=== PATIENT | female | born 1975 | race Caucasian/White ===

== ENCOUNTER 2018-07-01 18:04 | Outpatient (REF) | payer MEDICAID, SELFPAY ==
[2018-07-01 21:00] LABS: Anion Gap 10.4 mmol/L (3-11); BUN 13 mg/dL (7-18); CO2 27.6 mmol/L (21.0-32.0); CREATININE 0.81 mg/dL (0.55-1.02); Calcium 9.2 mg/dL (8.5-10.1); Chloride 102 mmol/L (98-107); Glucose 76 mg/dL (70-100); NT-proBNP 416 pg/mL; Potassium 4.7 mmol/L (3.5-5.1); Sodium 140 mmol/L (136-145); TSH (W/Ref FT4) 0.07 uIU/mL (0.358-3.74)
[2018-07-01 21:32] LABS: FREE T4 1.05 ng/dL (0.76-1.46)
[2018-07-02 21:02] LABS: T3,Free 3.5 pg/ml (2.8-5.3)
== END 2018-07-01 18:05 ==
LOC: NCHCN 18:04
PROVIDERS: Internal Medicine; PCP Nurse Practitioner Family; Visit Provider Nurse Practitioner Family
DX: R53.83 Other fatigue (principal); I50.811 Acute right heart failure
CPT/HCPCS: 80048; 83880; 84439; 84443; 84481

== ENCOUNTER 2018-07-16 00:56 | Outpatient (CLI) | payer MEDICAID, SELFPAY ==
--- NOTE | 2018-07-16 10:40 | MERGE_ITS ---
*[facility]* *[facility]* [address] [place] [address] Date of study: 07/16/2018 Transthoracic Echocardiography M-mode, complete 2D, complete spectral Doppler, and color Doppler *STUDY CONCLUSIONS* Summary: 1. Left ventricle: The cavity size was normal. Wall thickness was normal. Systolic function was hyperdynamic. The estimated ejection fraction was 65-70%. There was no dynamic obstruction. Wall motion was normal; there were no regional wall motion abnormalities. 2. Right ventricle: The cavity size was normal. Wall thickness was normal. Systolic function was normal. 3. Right atrium: The atrium was mildly dilated. 4. Pulmonary arteries: Pulmonary systolic pressure was within the normal range, in the range of 25mm Hg to 30mm Hg. 5. Pericardium, extracardiac: A trivial pericardial effusion was identified posterior to the heart. *PATIENT PRESENTATION* Height: 160cm ((63in) ) S/D Pressure: 104 / 63 Weight: 104.3kg ((229.5lb) ) BSA: 2.21m^2 Test start time: 10:53 AM. Test stop time: 11:40 AM. PERFORMING Unknown REFERRING Francine Moscoso Aprn PERFORMING [facility] MICROSTRATEGY BI DEVELOPER RT Talita Mcclellan)(GAMALIEL)PAZ *PROCEDURE DATA* Procedure information: This study was interpreted by [facility]. Pertinent images and digital data are archived for permanent storage and are available for subsequent review. No prior study was available for comparison. Study status: Routine. Transthoracic echocardiography. M-mode, complete 2D, complete spectral Doppler, and color Doppler. A Transthoracic Echocardiogram was performed. Scanning was performed from the parasternal, apical, subcostal, and suprasternal notch acoustic windows. Images were obtained using an [id number]. cardiac ultrasound machine. Image quality was adequate. Study completion: The patient tolerated the procedure well. There were no complications. History: PMH: Acute right heart failure. Chest pain. *CARDIAC ANATOMY* Left ventricle: The cavity size was normal. Wall thickness was normal. Systolic function was hyperdynamic. The estimated ejection fraction was 65-70%. There was no dynamic obstruction. Wall motion was normal; there were no regional wall motion abnormalities. Diastolic parameters were normal. Aortic valve: Trileaflet; normal thickness leaflets. Mobility was not restricted. Doppler: Transvalvular velocity was within the normal range. There was no stenosis. There was no significant regurgitation. VTI ratio of LVOT to aortic valve: 0.78. Valve area (VTI): 2.6cm^2. Indexed valve area (VTI): 1.2cm^2/m^2. Peak velocity ratio of LVOT to aortic valve: 0.76. Valve area (Vmax): 2.5cm^2. Indexed valve area (Vmax): 1.1cm^2/m^2. Mean velocity ratio of LVOT to aortic valve: 0.82. Indexed valve area (Vmean): 1.2cm^2/m^2. Mean gradient (S): 2.3mm Hg. Peak gradient (S): 4.2mm Hg. Aorta: Aortic root: The aortic root was normal in size. Ascending aorta: The ascending aorta was normal in size. Mitral valve: Structurally normal valve. Mobility was not restricted. Doppler: Transvalvular velocity was within the normal range. There was no evidence for stenosis. There was trivial regurgitation. Valve area by pressure half-time: 5.6cm^2. Indexed valve area by pressure half-time: 2.5cm^2/m^2. Peak gradient (D): 2mm Hg. Left atrium: The atrium was normal in size. Right ventricle: The cavity size was normal. Wall thickness was normal. Systolic function was normal. Pulmonic valve: Structurally normal valve. Doppler: Transvalvular velocity was within the normal range. There was no evidence for stenosis. There was no significant regurgitation. Peak gradient (S): 2.9mm Hg. Tricuspid valve: Structurally normal valve. Doppler: Transvalvular velocity was within the normal range. There was no evidence for stenosis. There was no significant regurgitation. Pulmonary artery: Pulmonary systolic pressure was within the normal range, in the range of 25mm Hg to 30mm Hg. Right atrium: The atrium was mildly dilated. Pericardium: A trivial pericardial effusion was identified posterior to the heart. Systemic veins: Inferior vena cava: Well visualized. The vessel was patent and normal in size. The respirophasic diameter changes were in the normal range (greater than or equal to 50%). Baseline ECG: Bradycardia. Measurements Left ventricle Value Reference LV ID, ED, PLAX 4.4 cm 3.5 - 6.0 LV ID, ES, PLAX 3.2 cm 2.1 - 4.0 LV PW thickness, ED, PLAX 1.0 cm LV end-diastolic volume, 1-p A2C 63 ml LV ejection fraction, 1-p A2C 71 % LV end-diastolic volume, 1-p A4C 60 ml LV ejection fraction, 1-p A4C 72 % LV e', lateral 0.126 m/sec LV E/e', lateral 6 LV e', medial 0.088 m/sec LV E/e', medial 8 LV e', average 0.107 m/sec LV E/e', average 7 Ventricular septum Value Reference IVS thickness, ED, PLAX 0.9 cm LVOT Value Reference LVOT ID, A-P 2.0 cm LVOT area 3.3 cm^2 LVOT peak velocity, S 0.77 m/sec LVOT mean velocity, S 0.59 m/sec LVOT VTI, S 19.3 cm LVOT peak gradient, S 2.4 mm Hg LVOT mean gradient, S 1.5 mm Hg Stroke volume (SV), LVOT DP 63 ml Stroke index (SV/bsa), LVOT DP 29 ml/m^2 Aortic valve Value Reference Aortic valve peak velocity, S 1 m/sec Aortic valve mean velocity, S 0.72 m/sec Aortic valve VTI, S 24.7 cm Aortic mean gradient, S 2.3 mm Hg Aortic peak gradient, S 4.2 mm Hg VTI ratio, LVOT/AV 0.78 Aortic valve area, VTI 2.6 cm^2 Velocity ratio, peak, LVOT/AV 0.76 Aortic valve area, peak velocity 2.5 cm^2 Velocity ratio, mean, LVOT/AV 0.82 Aortic valve area/bsa, mean velocity 1.2 cm^2/m^2 Aorta Value Reference Aortic root ID, ED 3.0 cm Ascending aorta ID, A-P, S 2.9 cm RVOT Value Reference RVOT VTI, S 17.1 cm Left atrium Value Reference LA ID, A-P, ES 3.7 cm LA ID/bsa, A-P 1.7 cm/m^2 <=2.2 LA area, ES, A4C 20.8 cm^2 8.8 - 23.4 LA area, ES, A2C 20 cm^2 LA volume/bsa, ES, 1-p A4C 32 ml/m^2 LA volume, ES, 2-p 62 ml LA volume/bsa, ES, 2-p 28 ml/m^2 LA/aortic root ratio 1.24 Mitral valve Value Reference Mitral E-wave peak velocity 0.71 m/sec Mitral A-wave peak velocity 0.46 m/sec Mitral deceleration time (L) 135 ms 150 - 230 Mitral pressure half-time 39 ms Mitral peak gradient, D 2 mm Hg Mitral E/A ratio, peak 1.54 Mitral valve area, PHT, DP 5.6 cm^2 Pulmonary veins Value Reference Pulmonary vein peak velocity, S 0.47 m/sec Pulmonary vein peak velocity, D 0.43 m/sec Pulmonary vein velocity ratio, peak, 1.08 S/D Tricuspid valve Value Reference Tricuspid regurg peak velocity 2.5 m/sec Tricuspid peak RV-RA gradient 24.7 mm Hg Right atrium Value Reference RA area, ES, A4C (H) 22.2 cm^2 8.3 - 19.5 Pulmonic valve Value Reference Pulmonic peak gradient, S 2.9 mm Hg Legend: (L) and (H) scott values outside specified reference range. I have personally reviewed the images and have reviewed and edited the reported findings. Electronically signed by Mohinder Felix 07/16/2018 14:44
== END 2018-07-16 00:57 ==
PROVIDERS: PCP Nurse Practitioner Family; Visit Provider Internal Medicine
DX: R07.9 Chest pain, unspecified (principal); I50.811 Acute right heart failure; I31.3 Pericardial effusion (noninflammatory)
CPT/HCPCS: 93306

== ENCOUNTER 2018-07-24 15:21 | Outpatient (REF) | payer MEDICAID, SELFPAY ==
[2018-07-24 21:23] LABS: Anion Gap 6.3 mmol/L (3-11); BUN 14 mg/dL (7-18); CO2 28.7 mmol/L (21.0-32.0); CREATININE 0.85 mg/dL (0.55-1.02); Chloride 104 mmol/L (98-107); Glucose 83 mg/dL (70-100); NT-proBNP 849 pg/mL; Potassium 4.3 mmol/L (3.5-5.1); Sodium 139 mmol/L (136-145)
== END 2018-07-24 15:22 ==
LOC: NCHCN 15:21
PROVIDERS: PCP Nurse Practitioner Family; Visit Provider Nurse Practitioner Family
DX: I50.811 Acute right heart failure (principal); R53.83 Other fatigue; R07.9 Chest pain, unspecified; F39 Unspecified mood [affective] disorder; J45.30 Mild persistent asthma, uncomplicated; E03.9 Hypothyroidism, unspecified; I31.3 Pericardial effusion (noninflammatory)
CPT/HCPCS: 80048; 83880

== ENCOUNTER 2018-07-29 03:21 | Outpatient (CLI) | payer MEDICAID, SELFPAY | END 2018-07-29 03:41 | PROVIDERS: PCP Nurse Practitioner Family; Visit Provider Nurse Practitioner Family | DX: R53.83 Other fatigue (principal) | CPT/HCPCS: 93225 ==

== ENCOUNTER 2018-07-31 16:26 | Outpatient (CLI) | payer MEDICAID, SELFPAY ==
--- NOTE | 2018-08-01 10:07 | HOLT_ITS ---
Date of service: 08/01/18 Time of Service: 10:07 Holter Monitor Report Holter Monitor Note: 24 hour monitor. Indication-fatigue Baseline -sinus rhythm. Average heart rate 64 bpm. Minimum heart rate 40 bpm. Maximum rate of 129 bpm. Rare isolated ventricular ectopy. No nonsustained VT. Rare atrial ectopy. Rare short bursts of SVT. Longest burst of SVT 7 beats - asymptomatic. No atrial fibrillation. No significant pauses or bradycardia arrhythmias. Patient diary entries of chest pain, palpitations, tingling all correspond to sinus rhythm. Overall sinus rhythm with rare ectopy.
== END 2018-07-31 16:46 ==
PROVIDERS: PCP Nurse Practitioner Family; Visit Provider Nurse Practitioner Family
DX: R53.83 Other fatigue (principal); I47.1 Supraventricular tachycardia
CPT/HCPCS: 93226

== ENCOUNTER 2018-08-14 15:35 | Outpatient (REF) | payer MEDICAID, SELFPAY ==
[2018-08-14 21:32] LABS: TSH 2.38 uIU/mL (0.358-3.74)
== END 2018-08-14 15:55 ==
LOC: NCHCN 15:35
PROVIDERS: PCP Nurse Practitioner Family; Visit Provider Nurse Practitioner Family
DX: E03.9 Hypothyroidism, unspecified (principal)
CPT/HCPCS: 84443

== ENCOUNTER 2018-09-22 14:22 | Outpatient (REF) | payer MEDICAID, SELFPAY ==
[2018-09-22 20:58] LABS: Iron 70 ug/dL (50-175); Total Iron Binding Capacity 317 ug/dL (250-450); Transferrin Sat 22 % (15-50)
[2018-09-22 21:03] LABS: Abs Immature Grans 0.01 k/cumm (0.0-0.09); Absolute Basophil Count 0.03 k/cumm (0.0-0.2); Absolute Eosinophil Count 0.05 k/cumm (0.0-0.7); Absolute Lymphocyte Count 1.87 k/cumm (1.2-3.4); Absolute Monocyte Count 0.59 k/cumm (0.11-0.7); Absolute Neutrophil Count 5.52 k/cumm (1.2-6.7); Basophils % 0.4; Eosinophils % 0.6; HCT 46.9 % (36.0-46.0); Immature Grans % 0.1; Lymphocytes % 23.2; Mean Corp. HGB Concentration 34.1 g/dL (32.0-36.0); Mean Corpuscular Hemoglobin 31.4 pg (27.0-33.0); Mean Corpuscular Volume 92.1 fL (80-95); Mean Platelet Volume 13.4 fL (8.0-11.0); Monocytes % 7.3; Neutrophils % 68.4; Platelet Count 152 x1000/uL (130-400); RBC 5.09 m/cumm (4.00-5.20); RBC Distribution Width 14.8 % (11.7-14.6); White Blood Cell Count 8.07 k/cumm (4.4-10.8)
[2018-09-22 21:16] LABS: ALT 28 U/L (12-78); AST 16 U/L (15-37); Albumin 3.7 g/dL (3.4-5.0); Alkaline Phosphatase 82 U/L (46-116); Anion Gap 9.8 mmol/L (3-11); BUN 14 mg/dL (7-18); Bilirubin, Total 0.3 mg/dL (0.2-1.0); CO2 29.2 mmol/L (21.0-32.0); CREATININE 0.85 mg/dL (0.55-1.02); Chloride 103 mmol/L (98-107); Ferritin 48 ng/mL (8-388); Glucose 89 mg/dL (70-100); Magnesium 1.7 mg/dL (1.8-2.4); Potassium 4.2 mmol/L (3.5-5.1); Sodium 142 mmol/L (136-145); Total Protein 6.8 g/dL (6.4-8.2)
[2018-09-22 22:09] LABS: NT-proBNP 594 pg/mL
[2018-09-24 17:09] LABS: Creatine Kinase 129 U/L (26 - 192)
[2018-09-25 13:08] LABS: BB Fraction 0 % (0); MB Fraction 0 % (0); MM Fraction 100 % (100)
[2018-12-01 09:45] LABS: BB Fraction 0 % (0); MB Fraction 0 % (0); MM Fraction 100 % (100)
== END 2018-09-22 14:42 ==
LOC: NCHCN 14:22
PROVIDERS: PCP Nurse Practitioner Family; Visit Provider Nurse Practitioner Family
DX: R53.83 Other fatigue (principal); R06.00 Dyspnea, unspecified; R42 Dizziness and giddiness; R07.9 Chest pain, unspecified; R00.2 Palpitations; I10 Essential (primary) hypertension
CPT/HCPCS: 80053; 82550; 82552; 82728; 83540; 83550; 83735; 83880; 85025

== ENCOUNTER 2018-10-01 14:34 | Emergency (ER) | payer MEDICAID, SELFPAY ==
[2018-10-01 14:44] VITALS: BP 117/76; PULSE 62; RESP 16; TEMP 36.5; O2SAT 97
[2018-10-01 14:55] VITALS: RESP 18
--- NOTE | 2018-10-01 15:04 | DI.RAD_ITS ---
SYMPTOM/DIAGNOSIS: CHEST PAIN, SOB PA AND LATERAL CHEST: The heart is normal in size. The lungs are clear. The mediastinal structures and pleura appear intact. CONCLUSION: Normal chest. No evidence of acute cardiopulmonary disease.
--- NOTE | 2018-10-01 15:12 | W.ED.GENAD ---
Discharge Plan Disposition Patient Disposition: HOME Condition: Good Discharge Details Chief Complaint: SOB Clinical Impression: Peripheral vertigo, SOB (shortness of breath) Reason For Visit: sob and dizzy spells 1 week Primary Care Provider: Francine Moscoso ED Provider: David Pennington Home Meds and New Rx's Prescriptions: New meclizine 25 mg tablet 25 mg PO TID Qty: 14 RF: 0 No Action clonidine HCl 0.1 MG tablet 0.1 mg PO BID PRN RF: 0 gabapentin 600 MG tablet 600 mg PO BID RF: 0 citalopram 40 MG tablet 40 mg PO DAILY RF: 0 omeprazole [Prilosec] 40 MG capsule,delayed release(DR/EC) 40 mg PO DAILY RF: 0 trazodone 100 MG tablet 100 mg PO HS RF: 0 fluticasone [Flovent HFA] 12 GM HFA aerosol inhaler 2 puff Inhalation BID RF: 0 estradiol 0.5 MG tablet 0.5 mg PO DAILY RF: 0 magnesium oxide 500 MG tablet 1,000 mg PO DAILY RF: 0 cholecalciferol (vitamin D3) 1,000 UNIT tablet 2,000 unit PO DAILY RF: 0 atorvastatin 20 MG tablet 20 mg PO DAILY Qty: 90 RF: 4 aspirin 81 MG tablet,delayed release (DR/EC) 81 mg PO DAILY Qty: 90 RF: 4 sennosides [senna] 8.6 MG tablet 1 tab-cap PO BID RF: 0 potassium chloride 10 MEQ capsule, extended release 20 meq PO DAILY Qty: 60 RF: 0 furosemide 20 MG tablet 20 mg PO BID@0830,1600 Qty: 60 RF: 0 omega 5-hdg-hdg-fish oil [Fish Oil] 1,000 mg (120 mg-180 mg) Capsule 1,000 mg PO DAILY RF: 0 levothyroxine 150 mcg Capsule 150 mcg PO DAILY RF: 0 Discharge Instructions Instructions: Dyspnea (ED), Dizziness (ED) Additional Instructions: Please continue taking the meclizine as directed. Please take your home medications as directed. Please follow-up with your associate entertainment editor Dr. Kady Nelson as soon as possible for reassessment. If you notice any worsening of your symptoms, or any new symptoms such as vomiting, diarrhea, fever, chills, shortness of breath, chest pain, numbness, weakness, or fainting , please return immediately to the emergency department for reevaluation. Please follow up with your primary care provider as soon as possible for reassessment and reevaluation. As always, it was a pleasure participating in your medical care today. Referrals: Francine Moscoso [Primary Care Provider] - Discharge Data Discharge Date/Time-TO BE ENTERED AT DEPARTURE: 10/01/18 18:17 Medical Decision Making This is a very pleasant 43-year-old female who presents for evaluation of dizziness, lightheadedness, mild shortness of breath. She states that it is been going on for the last few days. She denies any exertional chest pain, or chest discomfort. She denies any worsening of her symptoms with exertion. She denies any severe pleuritic chest pain. Physical exam demonstrates notable horizontal nystagmus, and a positive head impulse test. Bedside portable ultrasound was performed, and demonstrates evidence of a very minimal trace pericardial effusion, no evidence of compression on the patient's ventricles or atria, no evidence of compressive pericarditis. The patient is on estrogen, but has no other pulmonary embolism risk factors. We did get a d-dimer and this was normal. Laboratory workup is normal, troponin is negative, EKG benign, chest x-ray negative for any acute process, electrolytes normal. Patient's vital signs have remained completely stable here with no evidence of tachycardia, hypoxemia, or tachypnea. No hemodynamic instability. Physical exam did show evidence of signs and symptoms suggestive of peripheral vertigo with notable horizontal nystagmus worse with a head impulse test, and improved with meclizine that was given here. I feel that the patient's symptoms of mild shortness of breath are more likely related to her chronic tobacco history, rather than an acute cardiac etiology. With a normal troponin, normal EKG, and a heart score in the 0-3 range, in conjunction with her dizziness and lightheadedness most likely secondary to peripheral vertigo, I feel that she would be appropriate for discharge with close cardiology follow-up. I discussed the case with Dr. Washington. We discussed the patient's clinical case, scenario, and EKG findings and workup. I also discussed the limited bedside echo with the minimal trace pericardial effusion. He has no additional recommendations and does agree with close follow-up on an outpatient basis. Currently at this time of exam the patient's symptomatology does appear to be clinically inconsistent with ACS. Patient will be discharged home with meclizine, instructions for hydration, smoking cessation, and close follow-up with her associate entertainment editor. I have extensively reviewed the treatment plan and discharge instructions with the patient. I have addressed all patient concerns at this time. The patient was made aware of what symptoms to monitor for that would warrant a return to the emergency department. Discussed the plan with the patient, they demonstrate verbal understanding and agreement with our assessment and plan at this time. HPI General Date/Time Provider Initiated Documentation: 10/01/18 15:03. HPI Narrative: This is a 43-year-old female with a past medical history of mild congestive heart failure, high cholesterol, thyroidectomy, chronic trace pericardial effusion, regular Suboxone use, chronic self-catheterization secondary to history of incontinence, as well as being an avid smoker. She presents today for evaluation of dizziness, and occasional shortness of breath. The patient regularly sees Dr. Washington for cardiology. Patient states that over the last few days she has had occasional dizziness, worse with turning her head, as well as some very mild associated shortness of breath, mild cough. Denies any chest pain, but does admit to occasional pressure in her chest when she tries to breathe. She denies any significant neck or arm pain. She denies any history of cardiac disease, she denies any exertional chest pain. She was at her Suboxone prescriber's office today she was discussing her symptoms. The provider then recommended she come to the ER for further evaluation. Currently the patient denies any significant dizziness, lightheadedness, or chest pain or chest pressure. She denies any previous ischemia cardiac disease, stenting, or other abnormalities. She denies any ringing in her ears, vision changes, headache, numbness, tingling, or weakness. She has no other associated complaints at this time. She denies any current IV or illicit drug use. Related Data Home Medications Medication Instructions Recorded Confirmed citalopram 40 mg PO DAILY tab-cap 10/24/15 10/01/18 clonidine HCl 0.1 mg PO BID PRN tab-cap 10/24/15 10/01/18 estradiol 0.5 mg PO DAILY tab-cap 10/24/15 10/01/18 fluticasone [Flovent HFA] 2 puff INHALATION BID inhaler 10/24/15 10/01/18 gabapentin 600 mg PO BID tab-cap 10/24/15 10/01/18 omeprazole [Prilosec] 40 mg PO DAILY tab-cap 10/24/15 10/01/18 trazodone 100 mg PO HS tab-cap 10/24/15 10/01/18 aspirin 81 mg PO DAILY #90 tab-cap 10/31/15 10/01/18 atorvastatin 20 mg PO DAILY #90 tab-cap 10/31/15 10/01/18 cholecalciferol (vitamin D3) 2,000 unit PO DAILY 10/31/15 10/01/18 magnesium oxide 1,000 mg PO DAILY 10/31/15 06/27/18 sennosides [senna] 1 tab-cap PO BID tab-cap 10/29/17 10/01/18 furosemide 20 mg PO BID@0830,1600 #60 tab 06/28/18 10/01/18 potassium chloride 20 meq PO DAILY #60 capcr 06/28/18 10/01/18 levothyroxine 150 mcg PO DAILY 10/01/18 10/01/18 meclizine 25 mg PO TID #14 tab 10/01/18 omega 1-slo-ezx-fish oil [Fish Oil] 1,000 mg PO DAILY 10/01/18 10/01/18 Previous Rx's Medication Instructions Recorded furosemide 20 mg PO BID@0830,1600 #60 tab 06/28/18 potassium chloride 20 meq PO DAILY #60 capcr 06/28/18 meclizine 25 mg PO TID #14 tab 10/01/18 Allergies Allergy/AdvReac Type Severity Reaction Status Date / Time aspirin Allergy Mild STOMACH Unverified 06/27/18 14:10 DISCOMFORT sulfamethoxazole Allergy Unknown Unverified 06/27/18 14:10 [From ] trimethoprim [From ] Allergy Unknown Unverified 06/27/18 14:10 General Stated Complaint: SOB ROSETTA: 3 Review of Systems Review of Systems All systems reviewed & are unremarkable except as noted in HPI and below PFSH Social History Smoking/Tobacco Use Status: Current every day Surgical History Cholecystectomy Hysterectomy, Laproscopic Tonsillectomy and adenoidectomy Exam Narrative Exam Narrative: 1.Const: Well-nourished, Well-developed, appearing stated age 2.Eyes: PERRL, no conjunctival injection, and symmetrical lids. 3.ENT: Atraumatic external nose and ears. Moist MM. Neck: Symmetric, trachea midline, No thyromegaly. Patient does demonstrate horizontal nystagmus, notable worsening of her symptoms with a head impulse test. Dizziness is worsened, as well as the mild horizontal nystagmus. No vertical or rotatory nystagmus. 4.CVS: +S1/S2, No murmurs or gallops. Peripheral pulses 2+ and equal in all extremities. Brisk capillary refill in all extremities. 5.RESP: Unlabored respiratory effort. Clear to auscultation bilaterally. No wheezes rales or rhonchi 6.GI: Soft, Nontender/Nondistended, No hepatosplenomegaly. No guarding or rebound. 7.MSK: Normocephalic/Atraumatic, Extremities w/o deformity or ttp No cyanosis or clubbing, Normal movement of all extremities. No calf tenderness or swelling. 8.Skin: Warm, Dry. No rashes or lesions. 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 Sensation grossly intact, no focal neurologic deficits. Cerebellar function testing is normal. The patient demonstrates a normal hints exam with no findings concerning for a central event. No vertical nystagmus. The head impulse test is negative for any significant central abnormality. Normal test of skew. No suggestion of a central cerebellar event. All 6 cardinal planes of vision are fully intact. No evidence of rotatory or vertical nystagmus. The patient demonstrated a normal rdpvan-[id number]-bgurqp, good dexterity. There was no evidence of dysdiadochokinesia. Patient was able to ambulate without difficulty. There was no wide-based gait. Romberg, and opvl-ok-qvdg are both normal on testing. Sensation was intact bilaterally as well as muscle strength bilaterally for all extremities. Patient was able to verbalize butter cup with no slurring, or miss pronunciation. 10.Psych: (AAO) x3. Appropriate mood and affect Course Vital Signs Temperature 36.5 C 10/01/18 14:44 Pulse 62 10/01/18 14:44 Respiratory Rate 16 10/01/18 14:44 Blood Pressure 117/76 10/01/18 14:44 Pulse Oximetry 97 10/01/18 14:44 Temperature 36.5 C 10/01/18 14:44 Temperature Source Temporal Artery Scan 10/01/18 14:44 Pulse 62 10/01/18 14:44 Respiratory Rate 18 10/01/18 14:55 Respiratory Effort 10/01/18 14:55 Blood Pressure 117/76 10/01/18 14:44 Pulse Oximetry 97 10/01/18 14:44 Oxygen Delivery Method Room Air 10/01/18 14:44 Oxygen Flow Rate 0 10/01/18 14:44 Comment 10/01/18 14:44
[2018-10-01 15:22] LABS: Abs Immature Grans 0.01 k/cumm (0.0-0.09); Absolute Basophil Count 0.03 k/cumm (0.0-0.2); Absolute Eosinophil Count 0.11 k/cumm (0.0-0.7); Absolute Lymphocyte Count 3.22 k/cumm (1.2-3.4); Absolute Monocyte Count 0.52 k/cumm (0.11-0.7); Absolute Neutrophil Count 3.33 k/cumm (1.2-6.7); Basophils % 0.4; Eosinophils % 1.5; HCT 45.3 % (36.0-46.0); HGB 15.4 g/dL (12.0-15.5); Immature Grans % 0.1; Lymphocytes % 44.6; Mean Corpuscular Volume 91.1 fL (80-95); Mean Platelet Volume 12.4 fL (8.0-11.0); Monocytes % 7.2; Neutrophils % 46.2; Platelet Count 163 x1000/uL (130-400); RBC 4.97 m/cumm (4.00-5.20); RBC Distribution Width 14.9 % (11.7-14.6); White Blood Cell Count 7.22 k/cumm (4.4-10.8)
[2018-10-01] MEDS: Normal Saline 500 ML 1000 ML IV (15:25)
[2018-10-01] MEDS: Meclizine 25 MG TAB PO (15:25)
[2018-10-01 15:39] LABS: ALT 24 U/L (12-78); AST 16 U/L (15-37); Albumin 3.6 g/dL (3.4-5.0); Alkaline Phosphatase 85 U/L (46-116); Anion Gap 7.1 mmol/L (3-11); BUN 18 mg/dL (7-18); Bilirubin, Total 0.2 mg/dL (0.2-1.0); CO2 29.9 mmol/L (21.0-32.0); CREATININE 0.82 mg/dL (0.55-1.02); Calcium 8.9 mg/dL (8.5-10.1); Chloride 101 mmol/L (98-107); Glucose 112 mg/dL (70-100); Sodium 138 mmol/L (136-145); Total Protein 6.9 g/dL (6.4-8.2)
[2018-10-01 15:53] LABS: Troponin I < 0.02 ng/mL (0.00-0.06)
[2018-10-01 15:55] LABS: D-Dimer 441 ng/mlFEU (<500)
--- NOTE | 2018-10-01 16:40 | DI.VRAD_ITS ---
EXAM: XR Chest, 2 Views EXAM DATE/TIME: 10/01/2018 3:06 PM CLINICAL HISTORY: 43 years old, female; Pain; Chest pain; Type not specified TECHNIQUE: XR of the chest, 2 views. COMPARISON: CR CHEST 2 VIEWS PA,LAT 06/27/2018 2:55 PM FINDINGS: Lungs: Unremarkable. No consolidation. Pleural space: Unremarkable. No pleural effusion. No pneumothorax. Heart/Mediastinum: Cardiomediastinal contours and hilar shadows are unchanged. Bones/joints: Mild skeletal degenerative changes are seen. There are surgical clips in the upper abdomen. IMPRESSION: 1. No focal consolidation or pneumothorax. If symptoms remain concerning, cross-sectional imaging could be considered. Dictated and Authenticated by: Yen Garber MD. Ordering:RICH TOBAR MD
[2018-10-01 18:13] VITALS: BP 110/67; PULSE 59; RESP 16; TEMP 36.7; O2SAT 98
--- NOTE | 2018-10-01 21:36 | ED.GENADUL_ITS ---
Discharge Plan Disposition Patient Disposition: HOME Condition: Good Discharge Details Chief Complaint: SOB Clinical Impression: Peripheral vertigo, SOB (shortness of breath) Reason For Visit: sob and dizzy spells 1 week Primary Care Provider: Francine Moscoso ED Provider: David Pennington Home Meds and New Rx's Prescriptions: New meclizine 25 mg tablet 25 mg PO TID Qty: 14 RF: 0 No Action clonidine HCl 0.1 MG tablet 0.1 mg PO BID PRN RF: 0 gabapentin 600 MG tablet 600 mg PO BID RF: 0 citalopram 40 MG tablet 40 mg PO DAILY RF: 0 omeprazole [Prilosec] 40 MG capsule,delayed release(DR/EC) 40 mg PO DAILY RF: 0 trazodone 100 MG tablet 100 mg PO HS RF: 0 fluticasone [Flovent HFA] 12 GM HFA aerosol inhaler 2 puff Inhalation BID RF: 0 estradiol 0.5 MG tablet 0.5 mg PO DAILY RF: 0 magnesium oxide 500 MG tablet 1,000 mg PO DAILY RF: 0 cholecalciferol (vitamin D3) 1,000 UNIT tablet 2,000 unit PO DAILY RF: 0 atorvastatin 20 MG tablet 20 mg PO DAILY Qty: 90 RF: 4 aspirin 81 MG tablet,delayed release (DR/EC) 81 mg PO DAILY Qty: 90 RF: 4 sennosides [senna] 8.6 MG tablet 1 tab-cap PO BID RF: 0 potassium chloride 10 MEQ capsule, extended release 20 meq PO DAILY Qty: 60 RF: 0 furosemide 20 MG tablet 20 mg PO BID@0830,1600 Qty: 60 RF: 0 omega 6-rdx-hkx-fish oil [Fish Oil] 1,000 mg (120 mg-180 mg) Capsule 1,000 mg PO DAILY RF: 0 levothyroxine 150 mcg Capsule 150 mcg PO DAILY RF: 0 Discharge Instructions Instructions: Dyspnea (ED), Dizziness (ED) Additional Instructions: Please continue taking the meclizine as directed. Please take your home medications as directed. Please follow-up with your machine puller and laster Dr. Kady Nelson as soon as possible for reassessment. If you notice any worsening of your symptoms, or any new symptoms such as vomiting, diarrhea, fever, chills, shortness of breath, chest pain, numbness, weakness, or fainting , please return immediately to the emergency department for reevaluation. Please follow up with your primary care provider as soon as possible for reassessment and reevaluation. As always, it was a pleasure participating in your medical care today. Referrals: Francine Moscoso [Primary Care Provider] - Discharge Data Discharge Date/Time-TO BE ENTERED AT DEPARTURE: 10/01/18 18:17 Medical Decision Making This is a very pleasant 43-year-old female who presents for evaluation of dizziness, lightheadedness, mild shortness of breath. She states that it is been going on for the last few days. She denies any exertional chest pain, or chest discomfort. She denies any worsening of her symptoms with exertion. She denies any severe pleuritic chest pain. Physical exam demonstrates notable horizontal nystagmus, and a positive head impulse test. Bedside portable ultrasound was performed, and demonstrates evidence of a very minimal trace pericardial effusion, no evidence of compression on the patient's ventricles or atria, no evidence of compressive pericarditis. The patient is on estrogen, but has no other pulmonary embolism risk factors. We did get a d- dimer and this was normal. Laboratory workup is normal, troponin is negative, EKG benign, chest x-ray negative for any acute process, electrolytes normal. Patient's vital signs have remained completely stable here with no evidence of tachycardia, hypoxemia, or tachypnea. No hemodynamic instability. Physical exam did show evidence of signs and symptoms suggestive of peripheral vertigo with notable horizontal nystagmus worse with a head impulse test, and improved with meclizine that was given here. I feel that the patient's symptoms of mild shortness of breath are more likely related to her chronic tobacco history, rather than an acute cardiac etiology. With a normal troponin, normal EKG, and a heart score in the 0-3 range, in conjunction with her dizziness and lightheadedness most likely secondary to peripheral vertigo, I feel that she would be appropriate for discharge with close cardiology follow-up. I discussed the case with Dr. Washington. We discussed the patient's clinical case , scenario, and EKG findings and workup. I also discussed the limited bedside echo with the minimal trace pericardial effusion. He has no additional recommendations and does agree with close follow-up on an outpatient basis. Currently at this time of exam the patient's symptomatology does appear to be clinically inconsistent with ACS. Patient will be discharged home with meclizine, instructions for hydration, smoking cessation, and close follow-up with her machine puller and laster. I have extensively reviewed the treatment plan and discharge instructions with the patient. I have addressed all patient concerns at this time. The patient was made aware of what symptoms to monitor for that would warrant a return to the emergency department. Discussed the plan with the patient, they demonstrate verbal understanding and agreement with our assessment and plan at this time. HPI General Date/Time Provider Initiated Documentation: 10/01/18 15:03 . HPI Narrative: This is a 43-year-old female with a past medical history of mild congestive heart failure, high cholesterol, thyroidectomy, chronic trace pericardial effusion, regular Suboxone use, chronic self- catheterization secondary to history of incontinence, as well as being an avid smoker. She presents today for evaluation of dizziness, and occasional shortness of breath. The patient regularly sees Dr. Washington for cardiology. Patient states that over the last few days she has had occasional dizziness, worse with turning her head, as well as some very mild associated shortness of breath, mild cough. Denies any chest pain, but does admit to occasional pressure in her chest when she tries to breathe. She denies any significant neck or arm pain. She denies any history of cardiac disease, she denies any exertional chest pain. She was at her Suboxone prescriber's office today she was discussing her symptoms. The provider then recommended she come to the ER for further evaluation. Currently the patient denies any significant dizziness , lightheadedness, or chest pain or chest pressure. She denies any previous ischemia cardiac disease, stenting, or other abnormalities. She denies any ringing in her ears, vision changes, headache, numbness, tingling, or weakness. She has no other associated complaints at this time. She denies any current IV or illicit drug use. Related Data Home Medications Medication Instructions Recorded Confirmed citalopram 40 mg PO DAILY tab-cap 10/24/15 10/01/18 clonidine HCl 0.1 mg PO BID PRN tab-cap 10/24/15 10/01/18 estradiol 0.5 mg PO DAILY tab-cap 10/24/15 10/01/18 fluticasone [Flovent HFA] 2 puff INHALATION BID inhaler 10/24/15 10/01/18 gabapentin 600 mg PO BID tab-cap 10/24/15 10/01/18 omeprazole [Prilosec] 40 mg PO DAILY tab-cap 10/24/15 10/01/18 trazodone 100 mg PO HS tab-cap 10/24/15 10/01/18 aspirin 81 mg PO DAILY #90 tab-cap 10/31/15 10/01/18 atorvastatin 20 mg PO DAILY #90 tab-cap 10/31/15 10/01/18 cholecalciferol (vitamin D3) 2,000 unit PO DAILY 10/31/15 10/01/18 magnesium oxide 1,000 mg PO DAILY 10/31/15 06/27/18 sennosides [senna] 1 tab-cap PO BID tab-cap 10/29/17 10/01/18 furosemide 20 mg PO BID@0830,1600 #60 tab 06/28/18 10/01/18 potassium chloride 20 meq PO DAILY #60 capcr 06/28/18 10/01/18 levothyroxine 150 mcg PO DAILY 10/01/18 10/01/18 meclizine 25 mg PO TID #14 tab 10/01/18 omega 3-uay-otf-fish oil [Fish Oil] 1,000 mg PO DAILY 10/01/18 10/01/18 Previous Rx's Medication Instructions Recorded furosemide 20 mg PO BID@0830,1600 #60 tab 06/28/18 potassium chloride 20 meq PO DAILY #60 capcr 06/28/18 meclizine 25 mg PO TID #14 tab 10/01/18 Allergies Allergy/AdvReac Type Severity Reaction Status Date / Time aspirin Allergy Mild STOMACH Unverified 06/27/18 14:10 DISCOMFORT sulfamethoxazole Allergy Unknown Unverified 06/27/18 14:10 [From ] trimethoprim [From ] Allergy Unknown Unverified 06/27/18 14:10 General Stated Complaint: SOB ROSETTA: 3 Review of Systems Review of Systems All systems reviewed & are unremarkable except as noted in HPI and below PFSH Social History Smoking/Tobacco Use Status: Current every day Surgical History Cholecystectomy Hysterectomy, Laproscopic Tonsillectomy and adenoidectomy Exam Narrative Exam Narrative: 1.Const: Well-nourished, Well-developed, appearing stated age 2.Eyes: PERRL, no conjunctival injection, and symmetrical lids. 3.ENT: Atraumatic external nose and ears. Moist MM. Neck: Symmetric, trachea midline, No thyromegaly. Patient does demonstrate horizontal nystagmus, notable worsening of her symptoms with a head impulse test. Dizziness is worsened, as well as the mild horizontal nystagmus. No vertical or rotatory nystagmus. 4.CVS: +S1/S2, No murmurs or gallops. Peripheral pulses 2+ and equal in all extremities. Brisk capillary refill in all extremities. 5.RESP: Unlabored respiratory effort. Clear to auscultation bilaterally. No wheezes rales or rhonchi 6.GI: Soft, Nontender/Nondistended, No hepatosplenomegaly. No guarding or rebound. 7.MSK: Normocephalic/Atraumatic, Extremities w/o deformity or ttp No cyanosis or clubbing, Normal movement of all extremities. No calf tenderness or swelling. 8.Skin: Warm, Dry. No rashes or lesions. 9.Neuro: retail cashier II-XII grossly intact. Sensation grossly intact, no focal neurologic deficits. Cerebellar function testing is normal. The patient demonstrates a normal hints exam with no findings concerning for a central event. No vertical nystagmus. The head impulse test is negative for any significant central abnormality. Normal test of skew. No suggestion of a central cerebellar event. All 6 cardinal planes of vision are fully intact. No evidence of rotatory or vertical nystagmus. The patient demonstrated a normal wiaidn-qenk-ktophb, good dexterity. There was no evidence of dysdiadochokinesia. Patient was able to ambulate without difficulty. There was no wide-based gait. Romberg, and bqil-hx-tpef are both normal on testing. Sensation was intact bilaterally as well as muscle strength bilaterally for all extremities. Patient was able to verbalize butter cup with no slurring, or miss pronunciation. 10.Psych: (AAO) x3. Appropriate mood and affect Course Vital Signs Temperature 36.5 C 10/01/18 14:44 Pulse 62 10/01/18 14:44 Respiratory Rate 16 10/01/18 14:44 Blood Pressure 117/76 10/01/18 14:44 Pulse Oximetry 97 10/01/18 14:44 Temperature 36.5 C 10/01/18 14:44 Temperature Source Temporal Artery Scan 10/01/18 14:44 Pulse 62 10/01/18 14:44 Respiratory Rate 18 10/01/18 14:55 Respiratory Effort 10/01/18 14:55 Blood Pressure 117/76 10/01/18 14:44 Pulse Oximetry 97 10/01/18 14:44 Oxygen Delivery Method Room Air 10/01/18 14:44 Oxygen Flow Rate 0 10/01/18 14:44 Comment 10/01/18 14:44
== END 2018-10-01 18:17 | disposition home or self-care (01) ==
PROVIDERS: Emergency Provider Student in an Organized Health Care Education/Training Program; PCP Nurse Practitioner Family
DX: H81.399 Other peripheral vertigo, unspecified ear (principal); R06.02 Shortness of breath; R93.1 Abnormal findings on diagnostic imaging of heart and coronary circulation; R42 Dizziness and giddiness
CPT/HCPCS: 36415; 80053; 93005; 96360; 99285; 71046; 84484; 85025; 85379; 93010; 99284

== ENCOUNTER 2018-12-09 14:30 | Outpatient (REF) | payer MEDICAID, SELFPAY ==
[2018-12-09 22:01] LABS: Magnesium 1.7 mg/dL (1.8-2.4)
== END 2018-12-09 14:50 ==
LOC: NCHCN 14:30
PROVIDERS: PCP Nurse Practitioner Family; Visit Provider Nurse Practitioner Family
DX: E83.42 Hypomagnesemia (principal); M25.519 Pain in unspecified shoulder; I10 Essential (primary) hypertension; I31.3 Pericardial effusion (noninflammatory); F39 Unspecified mood [affective] disorder; R53.83 Other fatigue; I20.9 Angina pectoris, unspecified
CPT/HCPCS: 83735

== ENCOUNTER 2019-01-08 14:45 | Outpatient (REF) | payer MEDICAID, SELFPAY ==
--- NOTE | 2019-01-08 14:10 | SKI_PTH ---
PATIENT: BRIAN HILLMAN LOC: [facility] U#:[id number] AGE/SX: 43/F ROOM: RE01/08/[address]: Francine Moscoso : 1975 BED: DIS: 01/08/2019 SPEC #: [id number] RECD: 01/09/19 12:45 STATUS: ALISE OLPEZ #: [id number] SHARIF: 01/08/19 14:[address]: Francine Moscoso DEPT: Surgical Specimen RECD BY: Richa Bloom Tissues: 1 - SKIN BIOPSY(SHAVE/PUNCH) Procedures: SKIN LEVEL 4 Comments: [id number]
== END 2019-01-08 15:05 ==
LOC: NCHCN 14:45
PROVIDERS: PCP Nurse Practitioner Family; Visit Provider Nurse Practitioner Family
DX: D22.5 Melanocytic nevi of trunk (principal)
CPT/HCPCS: 88305

== ENCOUNTER 2019-03-13 00:16 | Outpatient (CLI) | payer MEDICAID, SELFPAY ==
--- NOTE | 2019-03-13 06:32 | MERGEMPI_ITS ---
*[facility]* *[facility]* [address] [place] [address] Myocardial Perfusion Imaging - SPECT Guevara protocol Date of study: 03/13/2019 *PATIENT PRESENTATION* Height: 160cm (63in) Blood Pressure: Weight: 109.1kg (240lb) BSA: 2.26m^2 Referring physician: Daniel Ghosh Ordering physician: Daniel Ghosh Impressions: Abnormal study after pharmacologic stress. Summary: 1. Myocardial perfusion imaging: There is a moderate sized, moderately intense, predominantly reversible defect involving the anterolateral wall(s). This suggests moderate ischemia in the distribution of the left anterior descending coronary artery. 2. The calculated left ventricular ejection fraction after stress: 67%. LV global systolic function is normal. Indication: R06.02, R07.9. History: REASON FOR TESTING: OVER THE PAST FEW MONTHS PATIENT REPORTS HAVING INTERMITTENT LEFT SIDED CHEST PAIN CRAMP ( 2/10) THAT LASTS FROM FIVE TO FIFTEEN SECONDS AND IS NOT RELATED WITH REST OR ACTIVITY. SHE STATES THE CRAMP IS RELEIVED WITH APPLYING PRESSURE OVER THE CRAMP SITE WITH HER HAND. SHE ALSO REPORTS HAVING OCCASIONAL PALPITATIONS FOR THE LAST 9 HEARS. UPON ARRIVAL TO TESTING TODAY PATIENT HAD A BRIEF LEFT SIDED HEART CRAMP THAT WAS RELEIVED WITH PUTTING PRESSURE OF THE SITE. NO OTHER REPORTED SYMPTOMS AT THIS TIME. SIGNIFICANT PAST MEDICAL HISTORY: THYROIDECTOMY, MILD CONGESTIVE HEART FAILURE, CHRONIC TRACE PERICARDIAL EFFUSION. SMOKING STATUS: CURRENT SMOKER. SMOKED FOR 30 YEARS 2 PPD. SHE IS TRYING TO QUIT SO OVER THE LAST 2 YEARS SHE MAY SMOKE UP TO 3 CIGARETTES PER DAY. EXERCISE ROUTINE: ACTIVE WITH DAILY ADL'S. PMH: Asthma. Risk factors: Family history of coronary artery disease. Current tobacco use. Obesity. Dyslipidemia. ALLERGIES: SULFAMETHOXAZOLE, TRIMETHOPRIM. MEDICATIONS: FLOVENT HFA 2 PUFFS BID, CITALOPRAM 40 MG DAILY, ESTRADOIL 0.5 MG DAILY, GABAPENTIN 600 MG QID, PRILOSEC 40 MG DAILY, TRAZODONE 100 MG HS, ASPIRIN 81 MG DAILY, ATORVASTATIN 20 MG DAILY, VITAMIN D 2000 UNITS DAILY, MAGNESIUM OXIDE 1000 MG DAILY, SENNA 1 TAB BID, POTASSIUM CHLORIDE 20 ALIE DAILY, MECLIZINE 25 MG DAILY, LEVOTHYROXINE 150 MCG DAILY, FISH OIL 1000 MG DAILY, BUSPIRONE 15 MG BID, SUBOXONE 20 MG DAILY. Imaging Technique: Protocol: Guevara protocol. Acquisition: Gated SPECT; 1 day - rest/stress. The patient was imaged in the supine position. Attenuation correction used. Isotope administration: - Rest. Tc[99m]-sestamibi. Dose: 10.4mCi. Injection time: 08:45 AM. Injection to stress time: 00:45. - Stress. Tc[99m]-sestamibi. Dose: 32.3mCi. Injection time: 10:12 AM. 1-2 min before end of exercise Baseline ECG: SINUS BRADYCARDIA. HR 56 BPM. Stress protocol: +--------+--+ + + !Stage !HR!BP (mmHg) !Comments ! +--------+--+ + + !Baseline!56!108/76 (87)! ! +--------+--+ + + !1 min !81!118/78 (91)!Inject Regadenoson.! +--------+--+ + + !3 min !71!118/80 (93)! ! +--------+--+ + + !6 min !65!120/68 (85)! ! +--------+--+ + + !9 min !62!112/70 (84)! ! +--------+--+ + + * Stress results: UNABLE TO DO GUEVARA PROTOCOL DUE TO CHRONIC HIP ISSUES. PATIENT HAS POOR TOLERANCE TO WALKING AT A FASTER RATE SHE FEELS LIKE HER HIP WILL LET GO CAUSING HER TO FALL. LEXISCAN STRESS TEST ENDED IN 9 MINUTES 25 SECONDS. NORMAL HEART RATE AND BLOOD PRESSURE RESPONSE TO LEXISCAN INJECTION. NO ECTOPY. PATIENT REPORTED A TIGHTNESS IN HER RIGHT SHOULDER AT APPROXIMATELY 1 MINUTES POST LEXISCAN INJECTION THAT HAD SUBSIDED BY APPROXIMATELY 5 MINUTES POST LEXISCAN INJECTION. NO SIGNIFICANT ST SEGMENT CHANGES. The rate-pressure product for the peak heart rate and blood pressure was 9558mm Hg/min. Myocardial perfusion: Imaging information: gated. Left ventricular size is normal. There is a moderate sized, moderately intense, predominantly reversible defect involving the anterolateral wall(s). This suggests moderate ischemia in the distribution of the left anterior descending coronary artery. Ventricular Function (Wall Motion): The calculated left ventricular ejection fraction after stress: 67%. LV global systolic function is normal. Study data: Daniel Ghosh MD supervised and was readily available during the procedure. This study was interpreted by [facility]. Study status: Routine. Consent: The risks, benefits, and alternatives to the procedure were explained to the patient and informed consent was obtained. Procedure: Initial setup. A baseline ECG was recorded. Surface ECG leads and manual cuff blood pressure measurements were monitored. Heart sounds: Normal. Lung sounds: Normal. Treadmill exercise testing was performed using the Guevara protocol. Study completion: All catheters inserted during the procedure were removed. The patient tolerated the procedure well and was discharged from the lab. Discharge: The patient left the laboratory in stable condition. Birthdate: Patient birthdate: 1975. Sex: Gender: female. Study date: Study date: 03/13/2019. Study time: 00:01 AM. Signature Documentation: - The imaging portion of this study was interpreted by Nuclear Dump Attendant Daniel Ghosh MD. - The imaging portion of this study was interpreted by Nuclear Radiologist Vishnu Delacruz MD. - The Stress ECG portion of this study was interpreted by Daniel Ghosh MD. Electronically signed by Daniel Ghosh 03/13/2019 12:38
[2019-03-13] MEDS: Regadenoson 0.4 MG/5 ML SYR IVP (10:54)
== END 2019-03-13 00:36 ==
PROVIDERS: PCP Nurse Practitioner Family; Visit Provider Internal Medicine Cardiovascular Disease
DX: R07.9 Chest pain, unspecified (principal); R06.02 Shortness of breath; R94.30 Abnormal result of cardiovascular function study, unspecified; I25.10 Atherosclerotic heart disease of native coronary artery without angina pectoris; R00.2 Palpitations; E78.5 Hyperlipidemia, unspecified; I50.9 Heart failure, unspecified; F17.210 Nicotine dependence, cigarettes, uncomplicated; E66.9 Obesity, unspecified; Z82.49 Family history of ischemic heart disease and other diseases of the circulatory system
CPT/HCPCS: 78452; 93017; J2785

== ENCOUNTER 2019-03-26 12:26 | Outpatient (CLI) | payer MEDICAID, SELFPAY ==
[2019-03-26 12:47] LABS: HCT 45.4 % (36.0-46.0); HGB 15.5 g/dL (12.0-15.5); Mean Corp. HGB Concentration 34.1 g/dL (32.0-36.0); Mean Corpuscular Hemoglobin 31.7 pg (27.0-33.0); Mean Corpuscular Volume 92.8 fL (80-95); Mean Platelet Volume 12.3 fL (8.0-11.0); Platelet Count 159 x1000/uL (130-400); RBC 4.89 m/cumm (4.00-5.20); RBC Distribution Width 14.3 % (11.7-14.6); White Blood Cell Count 5.58 k/cumm (4.4-10.8)
[2019-03-26 13:30] LABS: Anion Gap 6.7 mmol/L (3-11); BUN 11 mg/dL (7-18); CO2 29.3 mmol/L (21.0-32.0); CREATININE 0.91 mg/dL (0.55-1.02); Calcium 8.9 mg/dL (8.5-10.1); Chloride 102 mmol/L (98-107); Glucose 116 mg/dL (70-100); Potassium 4.5 mmol/L (3.5-5.1); Sodium 138 mmol/L (136-145)
== END 2019-03-26 12:46 ==
PROVIDERS: PCP Nurse Practitioner Family; Visit Provider Internal Medicine Cardiovascular Disease
DX: R07.9 Chest pain, unspecified (principal); R94.30 Abnormal result of cardiovascular function study, unspecified
CPT/HCPCS: 36415; 80048; 85027

== ENCOUNTER 2019-04-23 10:47 | Outpatient (CLI) | payer MEDICAID, SELFPAY ==
--- NOTE | 2019-04-23 10:39 | DI.RAD_ITS ---
SYMPTOMS/DIAGNOSIS: PAIN RIGHT SHOULDER: The bony structures are normally mineralized. There are mild degenerative changes involving the AC joint. The glenohumeral joint is intact. LEFT SHOULDER: A number of amorphous small calcifications are identified in the proximal humerus and could represent an enchondroma vs bone infarct. There is no evidence of a destructive or expansile lesion. There are minimal degenerative changes involving the AC joint. The glenohumeral joint as visualized appears intact.
== END 2019-04-23 11:07 ==
PROVIDERS: PCP Nurse Practitioner Family; Visit Provider Physician Assistant Surgical
DX: G89.29 Other chronic pain (principal); M25.511 Pain in right shoulder; M25.512 Pain in left shoulder; M19.011 Primary osteoarthritis, right shoulder; M19.012 Primary osteoarthritis, left shoulder
CPT/HCPCS: 73030

== ENCOUNTER 2019-04-30 00:49 | Outpatient (CLI) | payer MEDICAID, SELFPAY ==
--- NOTE | 2019-04-30 10:20 | DI.MAMMO_ITS ---
SYMPTOM/DIAGNOSIS: SCREENING, Z12.31, FAMILY HX, Z80.3 MAMMOGRAMS: Mammograms were interpreted according to the usual protocol including computer analysis with CAD system, tomosynthesis and C view imaging. Comparison with prior examinations. Breast density B. No suspicious masses or microcalcifications are seen. There is no definite evidence of malignancy. IMPRESSION: Negative mammogram. Routine screening is recommended. Category I. MQSA ASSESSMENT OF FINDINGS: Negative. Category 1. Patient will receive a letter notifying them of these results. BI-RADS category B. There are scattered areas of fibroglandular density.
== END 2019-04-30 01:09 ==
PROVIDERS: PCP Nurse Practitioner Family; Visit Provider Nurse Practitioner Family
DX: Z12.31 Encounter for screening mammogram for malignant neoplasm of breast (principal); Z80.3 Family history of malignant neoplasm of breast
CPT/HCPCS: 77063; 77067

== ENCOUNTER 2019-08-18 14:52 | Outpatient (REF) | payer MEDICAID, SELFPAY ==
[2019-08-18 21:38] LABS: Hemoglobin A1C 5.7 % (4.5-6.2)
[2019-08-18 22:04] LABS: ALT 28 U/L (14-59); AST 17 U/L (15-37); Albumin 3.7 g/dL (3.4-5.0); Alkaline Phosphatase 71 U/L (46-116); Anion Gap 7.4 mmol/L (3-11); BUN 9 mg/dL (7-18); Bilirubin, Total 0.3 mg/dL (0.2-1.0); CO2 29.6 mmol/L (21.0-32.0); Calcium 8.7 mg/dL (8.5-10.1); Chloride 103 mmol/L (98-107); Glucose 82 mg/dL (70-100); Magnesium 1.8 mg/dL (1.8-2.4); Potassium 4.4 mmol/L (3.5-5.1); Sodium 140 mmol/L (136-145); TSH (W/Ref FT4) 3.21 uIU/mL (0.36-3.74); Total Protein 6.7 g/dL (6.4-8.2); Vitamin B12 435 pg/mL (193-986)
== END 2019-08-18 15:12 ==
LOC: NCHCN 14:52
PROVIDERS: PCP Nurse Practitioner Family; Visit Provider Nurse Practitioner Family
DX: E83.42 Hypomagnesemia (principal); I25.10 Atherosclerotic heart disease of native coronary artery without angina pectoris; I20.9 Angina pectoris, unspecified; R53.83 Other fatigue; F19.10 Other psychoactive substance abuse, uncomplicated; F39 Unspecified mood [affective] disorder; R60.0 Localized edema; K21.9 Gastro-esophageal reflux disease without esophagitis
CPT/HCPCS: 80053; 82607; 83036; 83735; 84443

== ENCOUNTER 2019-10-13 09:08 | Day surgery (SDC) | payer MEDICAID, SELFPAY ==
--- NOTE | 2019-10-13 06:50 | ENDO_ITS ---
Date of service: 10/13/19 Endoscopy Report DATE OF PROCEDURE: 10/13/19 PRE-OP DIAGNOSIS: GERD symptoms on PPI PROCEDURE: EGD with biopsies ANESTHESIA: other (General/ ASA /) COMPLICATIONS: None DISPOSITION: same day INDICATIONS: Mrs. Puente is a pleasant 44 year old female seen in the office for an Upper endoscopy. She has a history of GERD and had been on Omeprazole for years. She started to have symptoms again despite medication and was switched to Nexium which has helped a little. She is here for an Upper endoscopy to make sure she doesn't have H. pylori or ulcers. Risks, benefits and complications have been reviewed. Complications include but are not limited to bleeding, pain, perforation, sore throat, aspiration, and adverse reaction to the medications. Questions were entertained and answered to their satisfaction and they wished to proceed. No guarantees were given or implied. PROCEDURE DESCRIPTION: After informed consent was obtained the patient was take to the procedure room and placed in a supine position. Monitors were applied and a time out was done. The patients name, date of , procedure type, allergies to medications and metal in their body was reviewed. A bite block was placed and the patient was sedated. Once sedated and comfortable the gastroscope was advanced through the oropharynx which was grossly normal into the esophagus. The proximal and mid- esophagus were []. In the distal esophagus there was [] noted. The scope was advanced into the stomach and through the pylorus into the 3rd portion of the duodenum. The duodenum was noted to be []. Biopsies were done []. The scope was retracted back into the stomach and biopsies were done to rule out H. pylori. There were [] ulcers. The scope was retroflexed. The cardia and fundus were noted to be normal. There [] a hiatal hernia noted. The scope was retracted back into the esophagus and biopsies were done of the GE junction to rule out Sparrow's. The Z line was regular. The GE junction was at [] cm. The scope was removed and the patient was woken up and taken back to [facility] in stable condition. Follow up:
--- NOTE | 2019-10-13 06:56 | W.PM.DSUDISC ---
Discharge Plan Disposition Patient Disposition: HOME Condition: Good Discharge Details Reason For Visit: GERD Attending Provider: Tomasa Robles Primary Care Provider: Francine Moscoso Home Meds and New Rx's Prescriptions: Continued buprenorphine-naloxone 8-2 mg tablet, sublingual 2.5 tab SL BID RF: 0 lidocaine 5 % ointment 1 applic TP QID PRN RF: 0 estradiol 0.5 mg tablet 0.5 mg PO DAILY RF: 0 acetaminophen [Tylenol Extra Strength] 500 mg tablet 500 mg PO Q4H PRNRF: 0 albuterol sulfate [Proventil HFA] 90 mcg/actuation HFA aerosol inhaler 2 puff IH Q6H PRNRF: 0 Advair HFA 115-21 mcg/actuation HFA aerosol inhaler 2 puff IH BID RF: 0 hydroxyzine HCl 25 mg tablet 25 mg PO TID PRNRF: 0 buspirone 15 mg tablet 15 mg PO BID RF: 0 citalopram 40 MG tablet 40 mg PO DAILY RF: 0 trazodone 100 MG tablet 100 mg PO HS RF: 0 magnesium oxide 500 MG tablet 1,000 mg PO BID RF: 0 atorvastatin 20 MG tablet 20 mg PO DAILY Qty: 90 RF: 4 aspirin 81 MG tablet,delayed release (DR/EC) 81 mg PO DAILY Qty: 90 RF: 4 sennosides [senna] 8.6 MG tablet 1 tab-cap PO BID RF: 0 gabapentin 600 mg tablet 600 mg PO QID RF: 0 levothyroxine 150 mcg Capsule 150 mcg PO DAILY RF: 0 meclizine 25 mg tablet 25 mg PO TID Qty: 14 RF: 0 Discharge Instructions Instructions: Upper Endoscopy (DC) Additional Instructions: Findings: Follow up: Please call if you develop: fevers >101.5 Nausea or Vomiting Abdominal pain that is not transient DAY SURGERY UNIT POST ENDOSCOPY INSTRUCTIONS 1. Because there will be medication in your system for the next 24 hours, you may feel a little sleepy. Your coordination will be affected. Therefore: a. Do not drive or operate dangerous equipment for 24 hours. b. Do not drink alcohol beverages for 24 hours (not even beer). c. Plan to go home and rest for the day. 2. Generally there are no restrictions on your activity after a day or so has gone by, but you may feel a bit fatigued for a few days. 3 After you arrive home you may have a light meal and return to a normal diet as you can tolerate it without feeling sick to your stomach. 4. After surgery, you may feel pain or discomfort. This should be only transient, but if it persists please contact your doctor. 5. If there are any questions regarding the findings of your procedure, please feel free to contact your doctor. 6. If you are unable to contact your doctor with a problem, contact the hospital at [phone]. 7. Continue all your regular medications unless directed otherwise. I understand the above instructions and have no questions. Signature of Patient or Responsible Adult Escort Date/Time Name of Responsible Adult Escort Signature of Nurse Date/Time Activity:: Activity as Tolerated Diet:: As Tolerated
== END 2019-10-13 09:28 | disposition home or self-care (01) ==
PROVIDERS: PCP Nurse Practitioner Family; Visit Provider Surgery
DX: K21.9 Gastro-esophageal reflux disease without esophagitis (principal); Y66 Nonadministration of surgical and medical care

== ENCOUNTER 2019-10-27 11:20 | Outpatient (CLI) | payer MEDICAID, SELFPAY ==
--- NOTE | 2019-10-27 11:14 | DI.RAD_ITS ---
EXAM: XR HIP LT COMPLETE AP PELVIS CLINICAL HISTORY: L hip pain. TECHNIQUE: 2D digital imaging was performed. FINDINGS: BONES: No acute fracture is present. No bony destructive lesion is seen. JOINTS: No dislocation present. SOFT TISSUE: Normal. IMPRESSION: Unremarkable radiographs of the left hip. Unremarkable radiographs of the pelvis
== END 2019-10-27 11:40 ==
PROVIDERS: PCP Nurse Practitioner Family; Visit Provider Physician Assistant
DX: M25.552 Pain in left hip (principal)
CPT/HCPCS: 73502

== ENCOUNTER 2019-11-03 05:59 | Day surgery (SDC) | payer MEDICAID, SELFPAY ==
[2019-11-03 06:25] VITALS: BP 110/67; PULSE 58; RESP 16; TEMP 36.7; O2SAT 95
--- NOTE | 2019-11-03 06:29 | W.UPDATEHP ---
Date of service: 11/03/19 Time of Service: 06:29 Updated H&P Refer to Most Recent Clinic Note/H&P Dated: 10/09/19 H&P was reviewed,patient examined No change has occured in patient's condition since last H&P completed
--- NOTE | 2019-11-03 06:31 | W.PM.ENDDOP ---
Date of service: 11/03/19 Time of Service: 07:30 Endoscopy Report DATE OF PROCEDURE: 11/03/19 PRE-OP DIAGNOSIS: GERD POST-OP DIAGNOSIS: other (Duodenitis, Pyloric ulcer, gastritis, esophagitis, Oropharynx lesion) PROCEDURE: EGD with biopsies SURGEON: Tomasa Robles ANESTHESIA: other (General/ ASA 2/ Nubia Otoole, INSPECTOR ALIGNING) ESTIMATED BLOOD LOSS: 3 PATHOLOGY: other (Duodenal bx, Pyloric ulcer, Antrum bx, GE junction bx) COMPLICATIONS: None DISPOSITION: same day INDICATIONS: Mrs. Puente is a pleasant 44-year-old female who has a history of reflux. She had been on omeprazole for many years and was recently switched over to Nexium due to increased in symptoms. She tells me that she had an upper endoscopy many years ago and was noted to have ulcers at that time. She cannot remember whether she was H. pylori positive. She tells me that her Prilosec was doubled to 40 mg twice daily for little while and that took care of her symptoms at that time. She does feel a little better with the Nexium. Her complaint is that of burning sensation as well as increased bloating. Risks, benefits and complications have been reviewed. Complications include but are not limited to bleeding, pain, perforation, sore throat, aspiration, and adverse reaction to the medications. Questions were entertained and answered to their satisfaction and they wished to proceed. No guarantees were given or implied. PROCEDURE START TIME: 07:29 PROCEDURE END TIME: 07:36 FINDINGS: Duodenitis 1st portion Pyloric ulcer mild Gastritis Esophagitis Oropharyngeal lesion PROCEDURE DESCRIPTION: After informed consent was obtained the patient was take to the procedure room and placed in a supine position. Monitors were applied and a time out was done. The patients name, date of , procedure type, allergies to medications and metal in their body was reviewed. A bite block was placed and the patient was sedated. Once sedated and comfortable the gastroscope was advanced through the oropharynx which was grossly normal into the esophagus. The proximal and mid-esophagus were normal. In the distal esophagus there was some inflammation noted. The scope was advanced into the stomach and through the pylorus into the 3rd portion of the duodenum. The 2nd and 3rd portion of the duodenum were noted to be normal. There was inflammation noted in the 1st portion of the duodenum. Biopsies were done in the 1st portion. The scope was retracted back into the stomach and biopsies were done to rule out H. pylori. There was one ulcer noted on the pylorus and biopsies of the ulcer were done. The scope was retro-flexed. The cardia and fundus were noted to be normal. There was no hiatal hernia noted. There were no gastric polyps. The scope was retracted back into the esophagus were there was some inflammation noted at the GE junction and biopsies were done to rule out Sparrow's. The Z line was irregular in 2 areas. The GE junction was at 35 cm. The scope was removed an in the oropharyn a lesion was noted. I took a picture of it. The patient was woken up and taken back to [facility] in stable condition. Follow up: 3 weeks in the office. I will start the patient on Carafate for now. I will send a referal to ENT regarding the oropharyngeal lesion.
--- NOTE | 2019-11-03 06:33 | W.PM.DSUDISC ---
Discharge Plan Disposition Patient Disposition: HOME Condition: Good Discharge Details Reason For Visit: Symptomatic GERD Attending Provider: Tomasa Robles Primary Care Provider: Francine Moscoso Home Meds and New Rx's Prescriptions: New Dexilant 60 mg capsule,biphase delayed releas 60 mg PO DAILY Qty: 30 RF: 5 sucralfate [Carafate] 1 gram tablet 1 gm PO QID Qty: 56 RF: 0 Continued buprenorphine-naloxone 8-2 mg tablet, sublingual SL BID RF: 0 lidocaine 5 % ointment 1 applic TP QID PRN PRNRF: 0 estradiol 0.5 mg tablet 0.5 mg PO DAILY RF: 0 acetaminophen [Tylenol Extra Strength] 500 mg tablet 500 mg PO Q4H PRNRF: 0 albuterol sulfate [Proventil HFA] 90 mcg/actuation HFA aerosol inhaler 2 puff IH Q6H PRNRF: 0 Advair HFA 115-21 mcg/actuation HFA aerosol inhaler 2 puff IH BID RF: 0 hydroxyzine HCl 25 mg tablet 25 mg PO TID PRNRF: 0 buspirone 15 mg tablet 15 mg PO BID RF: 0 citalopram 40 MG tablet 40 mg PO DAILY RF: 0 trazodone 100 MG tablet 100 mg PO HS RF: 0 magnesium oxide 500 MG tablet 1,000 mg PO BID RF: 0 atorvastatin 20 MG tablet 20 mg PO DAILY Qty: 90 RF: 4 aspirin 81 MG tablet,delayed release (DR/EC) 81 mg PO DAILY Qty: 90 RF: 4 sennosides [senna] 8.6 MG tablet 1 tab-cap PO BID RF: 0 gabapentin 600 mg tablet 600 mg PO QID RF: 0 levothyroxine 150 mcg Capsule 150 mcg PO DAILY RF: 0 meclizine 25 mg tablet 25 mg PO TID PRNRF: 0 Discharge Instructions Instructions: Upper Endoscopy (DC), Diet for Stomach Ulcers and Gastritis (GEN), Duodenitis (DC), Gastritis (DC), Esophagitis (DC) Additional Instructions: Findings: Inflammation of the small bowel, stomach and esophagus One ulcer noted in the stomach A lesion in the oropharynx Follow up: 3 weeks with me in the office I will send a referral to ENT for the oropharyngeal lesion. Please take the picture with you at the time of your appointment Please call if you develop: fevers >101.5 Nausea or Vomiting Abdominal pain that is not transient DAY SURGERY UNIT POST ENDOSCOPY INSTRUCTIONS 1. Because there will be medication in your system for the next 24 hours, you may feel a little sleepy. Your coordination will be affected. Therefore: a. Do not drive or operate dangerous equipment for 24 hours. b. Do not drink alcohol beverages for 24 hours (not even beer). c. Plan to go home and rest for the day. 2. Generally there are no restrictions on your activity after a day or so has gone by, but you may feel a bit fatigued for a few days. 3 After you arrive home you may have a light meal and return to a normal diet as you can tolerate it without feeling sick to your stomach. 4. After surgery, you may feel pain or discomfort. This should be only transient, but if it persists please contact your doctor. 5. If there are any questions regarding the findings of your procedure, please feel free to contact your doctor. 6. If you are unable to contact your doctor with a problem, contact the hospital at [phone]. 7. Continue all your regular medications unless directed otherwise. I understand the above instructions and have no questions. Signature of Patient or Responsible Adult Escort Date/Time Name of Responsible Adult Escort Signature of Nurse Date/Time Activity:: Activity as Tolerated Diet:: low acid Discharge Orders Discharge Orders: Discharge Order (Routine); Ordered 11/03/19 Ordered By: Tomasa Robles DS: Diagnosis Discharge Diagnosis (1) Chronic GERD: Status: Acute (2) H/O esophagogastroduodenoscopy: Status: Chronic
[2019-11-03] MEDS: Lactated Ringers 1,000 ML 80 ML IV (06:41)
--- NOTE | 2019-11-03 07:31 | STOM_PTH ---
PATIENT: BRIAN HILLMAN LOC: [facility] U#:[id number] AGE/SX: 44/F ROOM: RE11/03/[address]: Tomasa Robles MD : 1975 BED: DIS: 11/03/2019 SPEC #: [id number] RECD: 11/03/19 13:02 STATUS: ALISE RE #: [id number] SHARIF: 11/03/19 07:[address]: Tomasa Robles DEPT: Surgical Specimen RECD BY: Richa Bloom ENTERED: 11/03/19 13:03 SP TYPE: STOMACH OTHR DR: Francine Moscoso Tissues: 1 - BIOPSY BOWEL 2 - STOMACH BIOPSY 3 - STOMACH BIOPSY 4 - ESOPHAGUS BIOPSY Procedures: GROSS AND MICRO LEVEL 4 Comments: [id number]
[2019-11-03 08:15] VITALS: BP 111/65; PULSE 66; RESP 16; TEMP 36.5; O2SAT 95
== END 2019-11-03 08:57 | disposition home or self-care (01) ==
PROVIDERS: PCP Nurse Practitioner Family; Visit Provider Surgery
PROC: 0DJ68ZZ Inspection of Stomach, Via Natural or Artificial Opening Endoscopic (ICD-10-PCS; CPT 43235; principal; 2019-11-03 07:30)
DX: K21.0 Gastro-esophageal reflux disease with esophagitis (principal); K29.60 Other gastritis without bleeding; K29.80 Duodenitis without bleeding; K31.89 Other diseases of stomach and duodenum
CPT/HCPCS: 43239; 88305

== ENCOUNTER 2019-11-20 14:02 | Outpatient (REF) | payer MEDICAID, SELFPAY ==
[2019-11-20 20:32] LABS: Abs Immature Grans 0.02 k/cumm (0.0-0.09); Absolute Basophil Count 0.03 k/cumm (0.0-0.2); Absolute Eosinophil Count 0.02 k/cumm (0.0-0.7); Absolute Lymphocyte Count 1.77 k/cumm (1.2-3.4); Absolute Monocyte Count 0.37 k/cumm (0.11-0.7); Basophils % 0.4; Eosinophils % 0.2; HGB 14.8 g/dL (12.0-15.5); Immature Grans % 0.2; Mean Corp. HGB Concentration 32.9 g/dL (32.0-36.0); Mean Corpuscular Hemoglobin 30.7 pg (27.0-33.0); Mean Corpuscular Volume 93.4 fL (80-95); Mean Platelet Volume 12.9 fL (8.0-11.0); Monocytes % 4.4; Neutrophils % 73.8; Platelet Count 158 x1000/uL (130-400); RBC 4.82 m/cumm (4.00-5.20); RBC Distribution Width 14.5 % (11.7-14.6); White Blood Cell Count 8.41 k/cumm (4.4-10.8)
[2019-11-20 20:39] LABS: BUN 14 mg/dL (7-18); CREATININE 0.85 mg/dL (0.55-1.02); Calcium 9.1 mg/dL (8.5-10.1); Chloride 103 mmol/L (98-107); Glucose 85 mg/dL (74-106); Potassium 4.3 mmol/L (3.5-5.1); Sodium 141 mmol/L (136-145)
== END 2019-11-20 14:22 ==
LOC: NCHCN 14:02
PROVIDERS: PCP Nurse Practitioner Family; Visit Provider Nurse Practitioner Family
DX: K92.1 Melena (principal); R73.03 Prediabetes; I25.10 Atherosclerotic heart disease of native coronary artery without angina pectoris; R53.83 Other fatigue; K21.9 Gastro-esophageal reflux disease without esophagitis; F39 Unspecified mood [affective] disorder; R42 Dizziness and giddiness; J45.30 Mild persistent asthma, uncomplicated
CPT/HCPCS: 80048; 85025

== ENCOUNTER 2019-12-15 16:51 | Outpatient (REF) | payer MEDICAID, SELFPAY ==
[2019-12-15 20:17] LABS: Abs Immature Grans 0.01 k/cumm (0.0-0.09); Absolute Basophil Count 0.02 k/cumm (0.0-0.2); Absolute Eosinophil Count 0.04 k/cumm (0.0-0.7); Absolute Lymphocyte Count 2.22 k/cumm (1.2-3.4); Absolute Neutrophil Count 2.76 k/cumm (1.2-6.7); Basophils % 0.4; Eosinophils % 0.7; HCT 40.8 % (36.0-46.0); HGB 13.4 g/dL (12.0-15.5); Immature Grans % 0.2 %; Lymphocytes % 40.7; Mean Corp. HGB Concentration 32.8 g/dL (32.0-36.0); Mean Corpuscular Hemoglobin 31.3 pg (27.0-33.0); Mean Corpuscular Volume 95.3 fL (80-95); Mean Platelet Volume 13.3 fL (8.0-11.0); Monocytes % 7.3; Neutrophils % 50.7; Platelet Count 150 x1000/uL (130-400); RBC 4.28 m/cumm (4.00-5.20); RBC Distribution Width 14.8 % (11.7-14.6); White Blood Cell Count 5.45 k/cumm (4.4-10.8)
[2019-12-15 20:33] LABS: ALT 21 U/L (14-59); AST 13 U/L (15-37); Albumin 3.5 g/dL (3.4-5.0); Alkaline Phosphatase 57 U/L (46-116); Anion Gap 5.5 mmol/L (3-11); BUN 18 mg/dL (7-18); Bilirubin, Total 0.1 mg/dL (0.2-1.0); CO2 30.5 mmol/L (21.0-32.0); CREATININE 0.75 mg/dL (0.55-1.02); Calcium 8.7 mg/dL (8.5-10.1); Chloride 107 mmol/L (98-107); Glucose 82 mg/dL (74-106); Potassium 4.2 mmol/L (3.5-5.1); Sodium 143 mmol/L (136-145); Total Protein 6.2 g/dL (6.4-8.2)
== END 2019-12-15 17:11 ==
LOC: NCHCN 16:51
PROVIDERS: PCP Nurse Practitioner Family; Visit Provider Nurse Practitioner Family
DX: R68.81 Early satiety (principal); R10.817 Generalized abdominal tenderness; R19.7 Diarrhea, unspecified
CPT/HCPCS: 80053; 85025

== ENCOUNTER 2019-12-21 12:13 | Outpatient (REF) | payer MEDICAID, SELFPAY | END 2019-12-21 12:33 | LOC: NCHCN 12:13 | PROVIDERS: PCP Nurse Practitioner Family; Visit Provider Nurse Practitioner Family | DX: R19.7 Diarrhea, unspecified (principal); K92.1 Melena | CPT/HCPCS: 87177; 87324 ==

== ENCOUNTER 2019-12-23 14:03 | Outpatient (CLI) | payer MEDICAID, SELFPAY ==
[2019-12-23] MEDS: Omnipaque 350 MG/ML 100 ML BTL IJ (12:41)
[2019-12-23] MEDS: Normal Saline - Diluent 50 ML VIAL IV (12:41)
[2019-12-23] MEDS: Breeza Beverage 473 ML BTL PO ×2 (12:42→12:43)
[2019-12-23] MEDS: Omnipaque 350 MG/ML 50 ML BTL PO (12:42)
--- NOTE | 2019-12-23 12:45 | DI.CT_ITS ---
EXAM: CT ABDOMEN PELVIS W CLINICAL HISTORY: EARLY SATIETY, R68.81, ABD TENDERNESS GENERALIZED, R10.817, DIARRHEA, R19.7 TECHNIQUE: Post IV and oral contrast COMPARISON: No exams were available for comparison FINDINGS: The lung bases are clear. The heart size is normal. The patient is status post cholecystectomy. There is mild intrahepatic biliary dilatation. No focal liver lesions are seen. The spleen, pancrea s, kidneys, adrenals and urinary bladder are unremarkable. The patient is status post hysterectomy. The appendix appears normal. There is no gastric or small bowel dilatation or inflammatory change. The colon appears fluid filled. No diverticulosis or wall thickening is seen. There is no pneumat osis. No adenopathy or mass is seen. The aorta is normal in diameter and shows mild calcification. Laminectomy defects and hardware is noted at the L4-5 level. Degenerative disc changes are seen at L5-S1. IMPRESSION: Fluid-filled colon without definite inflammation. No evidence of bowel obstruction or appendicitis.
== END 2019-12-23 14:23 ==
PROVIDERS: PCP Nurse Practitioner Family; Visit Provider Nurse Practitioner Family
DX: R68.81 Early satiety (principal); R10.817 Generalized abdominal tenderness; R19.7 Diarrhea, unspecified; Z90.49 Acquired absence of other specified parts of digestive tract; K59.8 Other specified functional intestinal disorders
CPT/HCPCS: 74177; J3490; Q9967

== ENCOUNTER 2019-12-25 21:32 | Outpatient (REF) | payer MEDICAID, SELFPAY ==
[2019-12-25 21:07] LABS: Magnesium 1.5 mg/dL (1.8-2.4)
[2019-12-25 21:22] LABS: Hemoglobin A1C 5.9 % (3.8-5.6)
== END 2019-12-25 21:52 ==
LOC: NCHCN 21:32
PROVIDERS: PCP Nurse Practitioner Family; Visit Provider Nurse Practitioner Family
DX: E83.42 Hypomagnesemia (principal); R73.03 Prediabetes; R68.81 Early satiety; R10.817 Generalized abdominal tenderness; I25.10 Atherosclerotic heart disease of native coronary artery without angina pectoris; R53.83 Other fatigue; E03.9 Hypothyroidism, unspecified; F17.210 Nicotine dependence, cigarettes, uncomplicated
CPT/HCPCS: 83036; 83735

== ENCOUNTER 2020-01-07 12:53 | Outpatient (CLI) | payer MEDICAID, SELFPAY | END 2020-01-07 13:13 | PROVIDERS: PCP Nurse Practitioner Family; Visit Provider Orthopaedic Surgery | DX: Z01.818 Encounter for other preprocedural examination (principal) ==

== ENCOUNTER 2020-01-11 06:56 | Day surgery (SDC) | payer MEDICAID, SELFPAY ==
[2020-01-11] VITALS (7 sets, daily range): BP systolic 93–109; BP diastolic 51–77; PULSE 61–67; RESP 10–17; TEMP 36.4–36.6; O2SAT 92–99
[2020-01-11] MEDS: Lactated Ringers 1,000 ML 80 ML IV ×2 (08:03→10:55)
[2020-01-11] MEDS: ceFAZolin 2 GM/50 ML BAG IVPB (09:16)
[2020-01-11] MEDS: Bupivacaine 0.5% Pres-Free 30 ML VIAL (09:51)
--- NOTE | 2020-01-11 10:09 | W.PM.DSUDISC ---
Discharge Plan Disposition Patient Disposition: HOME Condition: Good Discharge Details Reason For Visit: ILIOTIBIAL BAND TENOTOMY L Attending Provider: Vishnu Flores Primary Care Provider: Francine Moscoso Home Meds and New Rx's Prescriptions: New ibuprofen 600 mg tablet 600 mg PO TID Qty: 30 RF: 0 hydrocodone-acetaminophen 5-325 mg tablet 1 tab PO Q6H PRN (Reason: pain) Qty: 10 RF: 0 Continued buprenorphine-naloxone 8-2 mg tablet, sublingual SL DAILY RF: 0 lidocaine 5 % ointment 1 applic TP QID PRN PRNRF: 0 estradiol 0.5 mg tablet 0.5 mg PO DAILY RF: 0 acetaminophen [Tylenol Extra Strength] 500 mg tablet 500 mg PO QID RF: 0 albuterol sulfate [Proventil HFA] 90 mcg/actuation HFA aerosol inhaler 2 puff IH Q6H PRNRF: 0 Advair HFA 115-21 mcg/actuation HFA aerosol inhaler 2 puff IH BID RF: 0 hydroxyzine HCl 25 mg tablet 25 mg PO TID PRNRF: 0 magnesium L-lactate 84 mg tablet extended release 84 mg PO BID RF: 0 buprenorphine-naloxone [Suboxone] 12-3 mg film 1 film BC Q24H RF: 0 lansoprazole [Prevacid] 30 mg capsule,delayed release(DR/EC) 30 mg PO DAILY RF: 0 Zyrtec 10 mg capsule 10 mg PO DAILY RF: 0 buspirone 15 mg tablet 15 mg PO BID RF: 0 famotidine [Pepcid] 40 mg tablet 20 mg PO QHS RF: 0 citalopram 40 MG tablet 40 mg PO DAILY RF: 0 trazodone 100 MG tablet 100 mg PO HS RF: 0 atorvastatin [Lipitor] 20 MG tablet 20 mg PO DAILY Qty: 90 RF: 4 aspirin 81 MG tablet,delayed release (DR/EC) 81 mg PO DAILY Qty: 90 RF: 4 sennosides [senna] 8.6 MG tablet 1 tab-cap PO BID PRNRF: 0 gabapentin 600 mg tablet 600 mg PO QID RF: 0 levothyroxine 150 mcg Capsule 150 mcg PO DAILY RF: 0 Discharge Instructions Additional Instructions: Crutches to walk. Put as much weight on L leg as your pain allows. Apply ice to L hip incision 4 times/day for 1 hour each time. May shower and get dressing wet in 72 hours. Let dressing come off by itself gradually. Take ibuprofen 3 times/day for inflammation and pain. Take tylenol for mild pain. Take hydrocodone for breakthru pain, if needed. Follow up with in 2 weeks. Referrals: Vishnu Flores MD [ [facility] STAFF PHYSICIAN] - (f/u in 2 weeks.) Equipment/Supplies: Partial Weight Bearing Crutches Activity:: Activity as Tolerated Remove Dressings/Wound Care:: Do Not Remove Shower/Bathe:: 72 hours Diet:: As Tolerated Discharge Orders Discharge Orders: Discharge Order (Routine); Ordered 01/11/20 Ordered By: Vishnu Flores DS: Diagnosis Discharge Diagnosis (1) Trochanteric bursitis, left hip: Status: Chronic
--- NOTE | 2020-01-12 14:59 | ROE_ITS ---
DATE OF PROCEDURE: January 11, 2020 PREOPERATIVE DIAGNOSIS: Chronic trochanteric bursitis, left. POSTOPERATIVE DIAGNOSIS: Same. PROCEDURE: 1. Excision of trochanteric bursa, left. 2. Tenotomy iliotibial band, left. ANESTHESIA: General. SURGEON: Vishnu Flores M.D. MARKET RESEARCH INTERN: Benjamin Baker INDICATIONS: This is a 44-year-old white female with chronic trochanteric bursitis on the left of ma ny months duration. This has failed to respond to nonoperative treatment. Because of the failure to respond to nonoperative treatment, surgery was recommended. It was recommended that the trochanteri c bursa be excised and that an iliotibial band tenotomy performed to eliminate constant stress on the trochanteric bursa. The risks and complications of the procedure were explained to the patient in d etail preoperatively. PROCEDURE: The patient was taken to the operating room on 01/11/2020. She was placed supine on the o perating table and a general anesthetic was administered. She was then turned to the left lateral po sition on the operating table and this position was maintained with a pneumatic beanbag. The area ov er the left greater trochanter is prepped in the usual sterile fashion. It is then block draped in t he usual sterile fashion. A longitudinal incision was made beginning just proximal to the tip of the greater trochanter and the n carried distally a distance of about five inches. The incision was carried down through the skin a nd subcu to the iliotibial band and gluteus fascia. Subcutaneous veins were cauterized. The iliotib ial band was longitudinally incised and the incision was carried proximally into the tensor fasciae l atae muscle proximal to the trochanter. The trochanteric bursa was visualized and was sharply excise d. I then adducted the left leg with my finger between the IT band and the trochanter. At the point of maximum compression of my finger, I made a transverse tenotomy in the iliotibial band. Bleeders were cauterized. The wound margins were infiltrated with 0.5% Marcaine with an epinephrine solution. The longitudinal incision in the IT band and tensor fasciae latae muscle was approximated with inte rrupted [id number] sutures of #1 Vicryl suture material. The area of tendon that was transverse ly tenotomized was left alone and left open. The subcu was approximated with interrupted #2-0 Vicryl sutures and a running subcuticular suture of #4-0 absorbable suture material was performed, suppleme nted with tissue glue and a Mepilex dressing. The patient tolerated the procedure well and was turne d supine on the operating table and her general anesthetic was reversed without complications. She w as discharged to recovery in good condition. The patient was discharged home from the Day Surgery Unit when fully recovered from her general anest hetic. She was given instructions to use crutches to walk, weightbearing as tolerated to the left le g. She was advised to apply ice to the left hip incision four times a day for an hour each time. Sh danielle will take Tylenol or ibuprofen for mild pain. She was given a prescription for breakthrough pain o f Hydrocodone with APAP 5/325, one tablet every six hours, as needed. She may shower and get her inc ision wet after 72 hours. She is to leave the dressings alone and let them fall by themselves. She should follow-up in my office in two weeks.
== END 2020-01-11 12:40 | disposition home or self-care (01) ==
PROVIDERS: PCP Nurse Practitioner Family; Visit Provider Orthopaedic Surgery
PROC: (CPT 27062; principal; 2020-01-11 08:30)
PROC: (CPT 27062; 2020-01-11 08:30)
DX: M70.62 Trochanteric bursitis, left hip (principal); F17.210 Nicotine dependence, cigarettes, uncomplicated
CPT/HCPCS: 27062; 27305; J0131; J0690; J1100; J1885; J2370; J2405; J2704

== ENCOUNTER 2020-02-08 01:35 | Outpatient (CLI) | payer MEDICAID, SELFPAY ==
--- NOTE | 2020-02-08 | PFT_ITS ---
PULMONARY FUNCTION TEST REPORT Patient - Rimma Puente DATE OF SERVICE February 08, 2020 REQUESTING PROVIDER Francine Moscoso NP INTERPRETATION OF STUDY Spirometry shows mild obstructive airways disease. No bronchodilator response. LUNG VOLUMES - Lung volumes show no evidence of restriction. DIFFUSION CAPACITY- Normal. AIRWAY RESISTANCE - Elevated. IMPRESSION Mild obstructive airways disease with no significant bronchodilator response. Clinical correlation recommended. Arely Hope M.D. Jose DD - 02/11/20
[2020-02-08] MEDS: Inhaler, Assist Device 1 EACH MC (13:59)
[2020-02-08] MEDS: Albuterol HFA 18 GM 200 PUFF INH IH (14:00)
== END 2020-02-08 01:55 ==
PROVIDERS: PCP Nurse Practitioner Family; Visit Provider Nurse Practitioner Family
DX: Z01.811 Encounter for preprocedural respiratory examination (principal); R06.09 Other forms of dyspnea; Z87.891 Personal history of nicotine dependence
CPT/HCPCS: 94060; 94726; 94729

== ENCOUNTER 2020-02-09 14:27 | Outpatient (REF) | payer MEDICAID, SELFPAY ==
[2020-02-09 21:13] LABS: Abs Immature Grans 0.01 k/cumm (0.0-0.09); Absolute Basophil Count 0.03 k/cumm (0.0-0.2); Absolute Eosinophil Count 0.15 k/cumm (0.0-0.7); Absolute Lymphocyte Count 2.04 k/cumm (1.2-3.4); Absolute Monocyte Count 0.53 k/cumm (0.11-0.7); Absolute Neutrophil Count 3.19 k/cumm (1.2-6.7); Basophils % 0.5; Eosinophils % 2.5; HCT 38.1 % (36.0-46.0); HGB 12.3 g/dL (12.0-15.5); Immature Grans % 0.2 %; Lymphocytes % 34.3; Mean Corp. HGB Concentration 32.3 g/dL (32.0-36.0); Mean Corpuscular Hemoglobin 31.1 pg (27.0-33.0); Mean Corpuscular Volume 96.2 fL (80-95); Mean Platelet Volume 13.7 fL (8.0-11.0); Monocytes % 8.9; Neutrophils % 53.6; Platelet Count 166 x1000/uL (130-400); RBC 3.96 m/cumm (4.00-5.20); White Blood Cell Count 5.95 k/cumm (4.4-10.8)
[2020-02-09 21:27] LABS: ALT 21 U/L (14-59); AST 14 U/L (15-37); Albumin 3.6 g/dL (3.4-5.0); Alkaline Phosphatase 52 U/L (46-116); Anion Gap 6.7 mmol/L (3-11); BUN 16 mg/dL (7-18); Bilirubin, Total 0.2 mg/dL (0.2-1.0); CO2 29.3 mmol/L (21.0-32.0); Calcium 8.5 mg/dL (8.5-10.1); Chloride 104 mmol/L (98-107); Glucose 81 mg/dL (74-106); Magnesium 1.7 mg/dL (1.8-2.4); Potassium 4.4 mmol/L (3.5-5.1); Sodium 140 mmol/L (136-145); Total Protein 6.4 g/dL (6.4-8.2)
== END 2020-02-09 14:47 ==
LOC: NCHCN 14:27
PROVIDERS: PCP Nurse Practitioner Family; Visit Provider Nurse Practitioner Family
DX: J38.2 Nodules of vocal cords (principal); Z01.818 Encounter for other preprocedural examination; Z01.812 Encounter for preprocedural laboratory examination
CPT/HCPCS: 80053; 83735; 85025